=== PATIENT | male | born 1975 | race American Indian/Alaskan Native ===

== ENCOUNTER 2019-05-19 06:19 | Emergency (ER) | payer OTHER ==
[2019-05-19 06:41] VITALS: BP 149/91
--- NOTE | 2019-05-19 07:14 | XRay Report ---
Lumbar spine 5 views Indication: lower back pain Findings: There is no fracture, subluxation, or other radiographic abnormality of the lumbar spine. Signer Name: Ismael Horowitz MD Signed: 05/19/2019 7:10 AM Workstation Name: [id number]
[2019-05-19] MEDS ORDERED: IBUPROFEN 800 MG TAB PO ONE (07:28)
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
== END 2019-05-19 07:49 | disposition home or self-care (01) ==
LOC: ED 06:19
DX: S39.012A Strain of muscle, fascia and tendon of lower back, initial encounter (principal); I10 Essential (primary) hypertension; F17.200 Nicotine dependence, unspecified, uncomplicated; V49.49XA Driver injured in collision with other motor vehicles in traffic accident, initial encounter; Y93.89 Activity, other specified; Y92.89 Other specified places as the place of occurrence of the external cause; Y99.8 Other external cause status
CPT/HCPCS: 72100

== ENCOUNTER 2019-06-16 08:57 | Emergency (ER) | payer OTHER ==
[2019-06-16 09:02] VITALS: BP 126/87
[2019-06-16] MEDS ORDERED: ONDANSETRON 4 MG/2 ML INJ IV ONE (11:58)
[2019-06-16] MEDS ORDERED: SODIUM CHLORIDE 0.9% 1000 ML 1,000 ML IV ONE (11:58)
[2019-06-16] MEDS ORDERED: MORPHINE 4 MG/1 ML INJ IV ONE (11:58)
[2019-06-16 13:16] LABS: Basophils % (Auto) 0.2 % (0.0-1.8); Eosinophils % (Auto) 0.1 % (0.0-4.3); Hematocrit 46.9 % (35.5-45.6); Hemoglobin 16.4 gm/dl (11.8-15.2); Lymphocytes # (Auto) 0.8 K/mm3 (1.2-5.4); Lymphocytes % (Auto) 10.5 % (13.4-35.0); Mean Corpuscular HGB Conc 35 % (32-34); Mean Corpuscular Volume 94 fl (84-94); Monocytes # (Auto) 0.4 K/mm3 (0.0-0.8); Monocytes % (Auto) 4.9 % (0.0-7.3); Platelet Count 311 K/mm3 (140-440)
[2019-06-16 13:36] LABS: Alanine Aminotransferase 41 units/L (7-56); Albumin 4.1 g/dL (3.9-5); BUN/Creatinine Ratio 22; Blood Urea Nitrogen 20 mg/dL (9-20); Hemolysis Index 15
--- NOTE | 2019-06-16 14:59 | XRay Report ---
ACUTE ABDOMEN SERIES 3 VIEWS 1409 INDICATION: abd pain n/v COMPARISON: None available. FINDINGS: Right lung field is clear. Vague density is seen in the retrocardiac region of the left bas e measuring 2.4 cm in diameter which may just represent superimposed vascular structures but I cannot exclude a focal infiltrate or even mass lesion. No pneumothorax or pneumoperitoneum are seen. Gas is seen throughout the colon. No bowel dilatation i s seen. No significant air-fluid levels are noted. No obvious urinary tract calculi are identified. D ensity in the right ilium is probably a bone island. IMPRESSION: 1. No acute abdominal abnormality is seen 2. Possible retrocardiac focal density as discussed above. Recommend follow-up with PA and lateral ch est x-ray to see if this is persistent. Signer Name: Kenrick Cohen MD Signed: 06/16/2019 2:55 PM Workstation Name: [id number]
--- NOTE | 2019-06-16 15:43 | XRay Report ---
CHEST PA AND LATERAL VIEWS INDICATION: pain. COMPARISON: None. FINDINGS: Support devices: None. Heart: Within normal limits. Lungs/Pleura: No acute pulmonary or pleural findings. IMPRESSION: 1. No significant abnormality. Specifically, no retrocardiac left lower lung abnormality is seen. Signer Name: Mark Jackson MD Signed: 06/16/2019 3:38 PM Workstation Name: [id number]
[2019-06-16 16:00] LABS: Bilirubin,Urine NEG (Negative); Blood,Urine SM (Negative); Color,Urine Yellow (Yellow); Mucus,Urine 1+ /HPF; Protein,Urine <15 mg/dL mg/dL (Negative)
--- NOTE | 2019-06-16 16:08 | Emergency Department Report ---
ED N/V/D HPI - General Chief complaint: Nausea/Vomiting/Diarrhea Stated complaint: VOMIT/WEAK/LIGHT HEADED Time Seen by Provider: 06/16/19 11:55 Source: patient Mode of arrival: Ambulatory Limitations: No Limitations - History of Present Illness Initial comments: This is a 44-year-old male nontoxic, well nourished in appearance, no acute signs of distress presents to the ED with c/o of nausea and vomiting 1 day. Patient describes vomiting as food content. Patient denies any abdominal pain, chest pain, short of breath, fever, chills, headache, stiff neck, numbness or tingling. Patient denies any diarrhea or constipation. Patient denies any re cent travels. Patient denies any drug allergies significant past medical history. MD complaint: nausea, vomiting -: days(s) (1) Description of Vomiting: food contents Associated Abdominal Pain: No Radiation: none Severity: mild Pain Scale: 0 Consistency: constant Improves with: none Worsens with: none Associated Symptoms: nausea/vomiting. denies: myalgias, chest pain, cough, diaphoresis, fever/chills, headaches, loss of appetite, malaise, rash, dysuria, shortness of breath, syncope, weakness - Related Data Previous Rx's Medication Instructions Recorded Last Taken Type Cyclobenzaprine [Flexeril] 10 mg PO QHS PRN #10 tablet 05/19/19 Unknown Rx Ibuprofen [Motrin] 600 mg PO Q8H PRN #20 tablet 05/19/19 Unknown Rx Ondansetron [Zofran Odt] 4 mg PO Q8HR PRN #20 tab.rapdis 06/16/19 Unknown Rx Allergies Allergy/AdvReac Type Severity Reaction Status Date / Time No Known Allergies Allergy Verified 06/16/19 08:58 ED Review of Systems ROS: Stated complaint: VOMIT/WEAK/LIGHT HEADED Other details as noted in HPI Constitutional: denies: chills, fever Eyes: denies: eye pain, eye discharge, vision change ENT: denies: ear pain, throat pain Respiratory: denies: cough, shortness of breath, wheezing Cardiovascular: denies: chest pain, palpitations Endocrine: no symptoms reported Gastrointestinal: nausea, vomiting. denies: abdominal pain, diarrhea, constipation Genitourinary: denies: urgency, dysuria Musculoskeletal: denies: back pain, joint swelling, arthralgia Skin: denies: rash, lesions Neurological: denies: headache, weakness, paresthesias Psychiatric: denies: anxiety, depression Hematological/Lymphatic: denies: easy bleeding, easy bruising ED Past Medical Hx - Past Medical History Hx Hypertension: Yes - Social History Smoking Status: Current Every Day Smoker Substance Use Type: None - Medications Home Medications: Home Medications Medication Instructions Recorded Confirmed Last Taken Type Cyclobenzaprine [Flexeril] 10 mg PO QHS PRN #10 tablet 05/19/19 Unknown Rx Ibuprofen [Motrin] 600 mg PO Q8H PRN #20 tablet 05/19/19 Unknown Rx Ondansetron [Zofran Odt] 4 mg PO Q8HR PRN #20 tab.rapdis 06/16/19 Unknown Rx ED Physical Exam - General Limitations: No Limitations General appearance: alert, in no apparent distress - Head Head exam: Present: atraumatic, normocephalic - Neck Neck exam: Present: normal inspection, full ROM. Absent: tenderness, meningismus, lymphadenopathy - Respiratory Respiratory exam: Present: normal lung sounds bilaterally. Absent: respiratory distress, wheezes, rales, rhonchi, stridor, chest wall tenderness, accessory muscle use, decreased breath sounds, prolonged expiratory - Cardiovascular Cardiovascular Exam: Present: regular rate, normal rhythm, normal heart sounds. Absent: irregular rhythm, systolic murmur, diastolic murmur, rubs, gallop - GI/Abdominal GI/Abdominal exam: Present: soft, normal bowel sounds. Absent: distended, tenderness, guarding, rebound, rigid, diminished bowel sounds - Extremities Exam Extremities exam: Present: normal inspection, full ROM - Back Exam Back exam: Present: normal inspection, full ROM. Absent: tenderness, CVA tenderness (R), CVA tenderness (L), muscle spasm, paraspinal tenderness, vertebral tenderness, rash noted - Neurological Exam Neurological exam: Present: alert, oriented X3, normal gait - Psychiatric Psychiatric exam: Present: normal affect, normal mood - Skin Skin exam: Present: warm, dry, intact, normal color. Absent: rash ED Course Vital Signs 06/16/19 06/16/19 08:58 12:55 Temperature 98.3 F Pulse Rate 105 H Respiratory 18 18 Rate Blood Pressure 126/87 O2 Sat by Pulse 97 Oximetry - Reevaluation(s) Reevaluation #1: 06/16/19 16:06 Patient is speaking in full sentences with no signs of distress noted. ED Medical Decision Making - Lab Data Result diagrams: 06/16/19 12:58 06/16/19 12:58 - Medical Decision Making This is a 44-year-old male that presents with nausea and vomiting. Patient is stable and was examined by me. There is no abdominal tenderness. Negative signs of symptoms of appendicitis, cholecystitis or acute abdomen. Labs obtained. UA obtained. Xr abdomen/chest xray obtained and dictated by the radiologist. Patient is notified of the report with no questions noted by the patient. Vital signs are stable prior to discharge. Patient received Zofran and 1L Normal saline in the ED which patient stated symptoms has resovled and subsided. A by mouth challenge has been obtained and patient tolerated well with no nausea vomiting. Patient was also instructed to Follow-up with a primary care doctor in 3-5 days or if symptoms worsen and continue return to emergency room as soon as possible. At time of discharge, the patient does not seem toxic or ill in appearance. No acute signs of distress noted. Patient agrees to discharge treatment plan of care. No further questions noted by the patient. Critical care attestation.: If time is entered above; I have spent that time in minutes in the direct care of this critically ill patient, excluding procedure time. ED Disposition Clinical Impression: Nausea & vomiting Qualifiers: Vomiting type: unspecified Vomiting Intractability: non-intractable Qualified Code(s): R11.2 - Nausea with vomiting, unspecified Disposition: DC-01 TO HOME OR SELFCARE Is pt being admited?: No Does the pt Need Aspirin: No Condition: Stable Instructions: Acute Nausea and Vomiting (ED) Additional Instructions: Follow-up with a primary care doctor in 3-5 days or if symptoms worsen and continue return to emergency room as soon as possible. Prescriptions: Ondansetron [Zofran Odt] 4 mg PO Q8HR PRN #20 tab.rapdis PRN Reason: Nausea Referrals: PRIMARY CARE, [Primary Care Provider] - 3-5 Days ASHLYN MÉNDEZ MD [Staff Physician] - 3-5 Days [facility] [Outside] - 3-5 Days Forms: Work/School Release Form(ED)
== END 2019-06-16 16:20 | disposition home or self-care (01) ==
LOC: ED 08:57
DX: R11.2 Nausea with vomiting, unspecified (principal); I10 Essential (primary) hypertension; F17.200 Nicotine dependence, unspecified, uncomplicated
CPT/HCPCS: 36415; 71046; 74022; 80053; 81001; 83690; 85025; 96361; 96374; 96375; 99284; J2270; J2405; J7030